=== PATIENT | female | born 2000 | race Caucasian/White ===

== ENCOUNTER 2019-02-02 10:47 | Emergency (ER) | payer OTHER ==
--- NOTE | 2019-02-02 10:50 | EDM.PDOC ---
ED HPI GENERAL MEDICAL PROBLEM - General Chief Complaint: General Stated Complaint: HIT HEAD Time Seen by Provider: 02/02/19 10:50 Source of Information: Reports: Patient - History of Present Illness INITIAL COMMENTS - FREE TEXT/NARRATIVE: HISTORY AND PHYSICAL: History of present illness: [Patient presents as she had fallen at [place] today She had slipped or lost her footing falling straight backwards it sounds as if should not the wind out of her herself as well as struck the back of her neck on the edge of the stair and low back she complains of 2-3 out of 10 pain no head injury or loss of consciousness reported by patient No fever nausea vomiting chills sweats no chest pain no current shortness breath headache dizziness or palpitation no bowel or urine symptoms ] Review of systems: As per history of present illness and below otherwise all systems reviewed and negative. Past medical history: As per history of present illness and as reviewed below otherwise noncontributory. Surgical history: As per history of present illness and as reviewed below otherwise noncontributory. Social history: No reported history of drug or alcohol abuse. Family history: As per history of present illness and as reviewed below otherwise noncontributory. Physical exam: HEENT: Atraumatic, normocephalic, pupils reactive, negative for conjunctival pallor or scleral icterus, mucous membranes moist, throat clear, neck supple, nontender, trachea midline. Lungs: Clear to auscultation, breath sounds equal bilaterally, chest nontender. Heart: S1S2, regular, negative for clicks, rubs, or JVD. Abdomen: Soft, nondistended, nontender. Negative for masses or hepatosplenomegaly. Negative for costovertebral tenderness. Pelvis: Stable nontender. Genitourinary: Deferred. Rectal: Deferred. Extremities: Atraumatic, negative for cords or calf pain. Neurovascular unremarkable. Neuro: Awake, alert, oriented. Cranial nerves II through XII unremarkable. Cerebellum unremarkable. Motor and sensory unremarkable throughout. Exam nonfocal. Skin within normal limits no bruising Diagnostics: [Cervical spine plain films Lumbar spine plain films Chest 1 view ] hCG Therapeutics: [ rest ice ibuprofen ] Impression: [ fall/contusion Low back pain ] Neck pain Definitive disposition and diagnosis as appropriate pending reevaluation and review of above. Back Pain Score (Numeric/FACES): 8 - Related Data Allergies Allergy/AdvReac Type Severity Reaction Status Date / Time No Known Allergies Allergy Verified 02/02/19 10:55 Home Meds: Home Meds Levonorgestrel [Kyleena] 1 unit VAG ONETIME 02/02/19 [History] ED ROS GENERAL - Review of Systems Review Of Systems: See Below ED EXAM, GENERAL - Physical Exam Exam: See Below Course - Vital Signs Last Recorded V/S: Last Vital Signs Temp 97.8 F 02/02/19 10:58 Pulse 62 02/02/19 10:58 Resp 15 02/02/19 10:58 BP 130/89 02/02/19 10:58 Pulse Ox 100 02/02/19 10:58 - Orders/Labs/Meds Labs: Laboratory Tests 02/02/19 Range/Units 11:03 Urine HCG, Qual NEGATIVE (NEGATIVE) Departure - Departure Time of Disposition: 12:59 Disposition: Home, Self-Care 01 Condition: Good Clinical Impression: Encounter for medical screening examination, Low back pain, Neck pain, Contusion - Discharge Information Referrals: PCP,None [Primary Care Provider] - Forms: ED Department Discharge Additional Instructions: Ice 20 minute intervals 3 times daily Ibuprofen 400 mg 3 times daily 7-10 days Follow-up with primary care 2 weeks sooner as needed [facility] - Primary Care [address] [place] [address] The following information is given to patients seen in the emergency department who are being discharged to home. This information is to outline your options for follow-up care. We provide all patients seen in our emergency department with a follow-up referral. The need for follow-up, as well as the timing and circumstances, are variable depending upon the specifics of your emergency department visit. If you don't have a primary care physician on staff, we will provide you with a referral. We always advise you to contact your personal physician following an emergency department visit to inform them of the circumstance of the visit and for follow-up with them and/or the need for any referrals to a consulting specialist. The emergency department will also refer you to a specialist when appropriate. This referral assures that you have the opportunity for follow-up care with a specialist. All of these measure are taken in an effort to provide you with optimal care, which includes your follow-up. Under all circumstances we always encourage you to contact your private physician who remains a resource for coordinating your care. When calling for follow-up care, please make the office aware that this follow-up is from your recent emergency room visit. If for any reason you are refused follow-up, please contact the [facility] emergency department at and asked to speak to the emergency department charge nurse.
--- NOTE | 2019-02-02 12:51 | CR ---
INDICATION: Pain after fall. TECHNIQUE: Cervical spine 3 view. COMPARISON: None FINDINGS: Bones: Alignment is normal. No fractures or significant bone lesions. Joints: Disc spaces and facets are unremarkable. Soft tissues: Unremarkable. IMPRESSION: Unremarkable cervical spine. Dictated by Jeff Lopez MD @ Feb 02 2019 12:49PM Signed by Dr. Jeff Lopez @ Feb 02 2019 12:49PM
--- NOTE | 2019-02-02 12:51 | CR ---
INDICATION: fall Single AP view Findings: The lungs are clear. Pulmonary vascularity, mediastinum and cardiac silhouette are within normal limits. No effusions and no pneumothorax. Osseous structures appear unremarkable. Impression: No evidence of acute cardiopulmonary disease. Dictated by: Jeff Lopez MD @ 02/02/2019 12:50:06 (Electronically Signed)
--- NOTE | 2019-02-02 12:53 | CR ---
INDICATION: Pain after fall. TECHNIQUE: Lumbar spine 3 view. COMPARISON: None FINDINGS: Bones: Alignment is normal. No fractures or significant bone lesions. Joints: Disc spaces and facets are unremarkable. Soft tissues: IUD. Moderately large volume of formed stool. IMPRESSION: Unremarkable lumbar spine. Dictated by Jeff Lopez MD @ Feb 02 2019 12:50PM Signed by Dr. Jeff Lopez @ Feb 02 2019 12:50PM
== END 2019-02-02 13:07 | disposition home or self-care (01) ==
LOC: MW.ED 10:47
DX: S30.0XXA Contusion of lower back and pelvis, initial encounter (principal); S10.93XA Contusion of unspecified part of neck, initial encounter; W22.8XXA Striking against or struck by other objects, initial encounter
CPT/HCPCS: 71045; 71045-26; 72040; 72040-26; 72100; 72100-26; 81025; 99283-25

== ENCOUNTER 2021-06-17 21:45 | Inpatient (IN) | payer BC ==
--- NOTE | 2021-06-17 22:19 | PCM.LDHP ---
L&D History of Present Illness - General Date of Service: 06/17/21 Admit Problem/Dx: Admission Diagnosis/Problem Admission Diagnosis/Problem Source of Information: Patient History Limitations: Reports: No Limitations - History of Present Illness Introduction:: 20 year old female at 39w0d presents with spontaneous rupture of membranes which occurred at 2034 with clear fluid. Mild irregular cramping since ROM. Reports good movement. Denies vaginal bleeding. Patient had a routine OB appointment with Dr. Valenzuela at [facility] today and cervical exam was 260/-3, vertex at that time. has been complicated by anxiety, patient taking Wellbutrin. - Related Data Allergies/Adverse Reactions: Allergies Allergy/AdvReac Type Severity Reaction Status Date / Time No Known Allergies Allergy Verified 02/02/19 10:55 Home Medications: Home Meds levonorgestreL [Kyleena] 1 unit VAG ONETIME 02/02/19 [History] Past Medical History - Past Health History Medical/Surgical History: Denies Medical/Surgical History Social & Family History - Family History Family Medical History: No Pertinent Family History - Caffeine Use Caffeine Use: Reports: Coffee, Energy Drinks, Soda, Tea H&P Review of Systems - Review of Systems: Review Of Systems: See Below General: Reports: No Symptoms HEENT: Reports: No Symptoms Pulmonary: Reports: No Symptoms Cardiovascular: Reports: No Symptoms Gastrointestinal: Reports: Abdominal Pain Genitourinary: Reports: No Symptoms Musculoskeletal: Reports: Back Pain Skin: Reports: No Symptoms Psychiatric: Reports: No Symptoms Neurological: Reports: No Symptoms Hematologic/Lymphatic: Reports: No Symptoms Immunologic: Reports: No Symptoms L&D Exam - Exam Exam: See Below - OB Specific Contraction Frequency (min): Irritability Contraction Intensity: Irritability Movement: Active Heart Tones: Present Heart Tones per Min: 130 Heart Rate (FHR) Variability: Moderate (6-25 bpm) Presentation: Vertex Estimated Weight: 3500 grams Problem List Initiated/Reviewed/Updated: Yes Assessment/Plan Comment:: 20 year old G1 at 39w0d with spontaneous rupture of membranes * Admit to labor and delivery * Recheck cervix in 1 hour, if no change may initiate Pitocin to augment labor * May receive epidural PRN pain management * Rh positive, GBS negative * Rubella NON-immune, candidate for MMR
[2021-06-17] MEDS ORDERED: Terbutaline 1 MG/ML SDV SUBCUT PRN (22:33)
[2021-06-17] MEDS ORDERED: Misoprostol 25 MCG (1/4 of 100 MCG) Tab VAG PRN (22:33)
[2021-06-17] MEDS ORDERED: Oxytocin/0.9 % Sodium Chloride 30 UNIT/500 ML BAG IV SCH ×2 (22:45→23:15)
[2021-06-17] MEDS: Lactated Ringers 1,000 ML IV SCH (22:55)
[2021-06-17] MEDS ORDERED: Sodium Chloride 0.9% 10 ML Syringe FLUSH PRN (23:07)
[2021-06-17] MEDS ORDERED: Sodium Chloride 0.9% 2.5 ML Syringe FLUSH PRN (23:07)
[2021-06-17] MEDS ORDERED: Methylergonovine 0.2 MG/1 ML Amp IM PRN (23:07)
[2021-06-17] MEDS ORDERED: Nalbuphine 10 MG/1 ML Vial IVPUSH PRN (23:07)
[2021-06-17] MEDS ORDERED: Water For Irrigation,Sterile 1,000 ML Container IRR PRN (23:07)
[2021-06-17] MEDS ORDERED: Lidocaine 1% 50 ML MDV INJECT PRN (23:07)
[2021-06-17] MEDS ORDERED: Tranexamic Acid 1,000 MG in Sodium Chloride 0.9% 100 ML IV PRN (23:07)
[2021-06-17] MEDS ORDERED: Misoprostol 200 MCG Tab PO PRN (23:07)
[2021-06-17] MEDS ORDERED: Sodium Chloride 0.9% 10 ML SDV IV PRN (23:07)
[2021-06-17] MEDS ORDERED: Carboprost Tromethamine 250 MCG/1 ML Amp IM PRN (23:07)
[2021-06-18] MEDS ORDERED: Promethazine 25 MG/ML SDV ONE (04:20)
[2021-06-18] MEDS: Butorphanol 1 MG/ML SDV IVPUSH PRN ×2 (04:28→05:39)
[2021-06-18] MEDS: Promethazine 25 MG/ML SDV IM PRN ×2 (04:30→21:48)
[2021-06-18] MEDS: Lactated Ringers 1,000 ML IV SCH ×2 (05:01→08:35)
[2021-06-18] MEDS ORDERED: fentaNYL 100 MCG/2 ML SDV ONE (08:01)
[2021-06-18] MEDS ORDERED: Ropivacaine HCl/PF 200 ML ONE (08:01)
[2021-06-18] MEDS ORDERED: Lidocaine 2% with EPINEPHrine 1:200,000 20 ML SDV ONE (08:02)
--- NOTE | 2021-06-18 08:27 | PCM.PREANE ---
Preanesthetic Assessment - Anesthesia/Transfusion/Family Hx Anesthesia History: Prior Anesthesia Without Reaction Family History of Anesthesia Reaction: No Transfusion History: No Prior Transfusion(s) - Physical Assessment NPO Status Date: 06/18/21 NPO Status Time: 00:05 Height: 1.68 m Weight: 82.1 kg ASA Class: 2 - Lab Values: Laboratory Last Values WBC 10.96 K/uL (4.0-11.0) 06/17/21 22:54 RBC 3.60 M/uL (4.30-5.90) L 06/17/21 22:54 Hgb 11.7 g/dL (12.0-16.0) L 06/17/21 22:54 Hct 33.3 % (36.0-46.0) L 06/17/21 22:54 MCV 92.5 fL (80.0-98.0) 06/17/21 22:54 MCH 32.5 pg (27.0-32.0) H 06/17/21 22:54 MCHC 35.1 g/dL (31.0-37.0) 06/17/21 22:54 RDW Std Deviation 43.5 fl (28.0-62.0) 06/17/21 22:54 RDW Coeff of Alvin 13 % (11.0-15.0) 06/17/21 22:54 Plt Count 144 K/uL (150-400) L 06/17/21 22:54 MPV 11.60 fL (7.40-12.00) 06/17/21 22:54 Nucleated RBC % 0.0 /100WBC 06/17/21 22:54 Nucleated RBCs # 0 K/uL 06/17/21 22:54 SARS-CoV-2 RNA (SCAR) NEGATIVE (NEGATIVE) 06/17/21 22:09 Blood Type A POSITIVE 06/17/21 22:54 Antibody Screen NEGATIVE 06/17/21 22:54 - Allergies Allergies/Adverse Reactions: Allergies Allergy/AdvReac Type Severity Reaction Status Date / Time No Known Allergies Allergy Verified 06/17/21 23:04 - Acknowledgements Anesthesia Type Planned: Epidural Pt an Appropriate Candidate for the Planned Anesthesia: Yes Alternatives and Risks of Anesthesia Discussed w Pt/Guardian: Yes Pt/Guardian Understands and Agrees with Anesthesia Plan: Yes PreAnesthesia Questionnaire - Past Health History Medical/Surgical History: Denies Medical/Surgical History F[employer] History: Reports: Psychiatric History: Reports: Anxiety, Other (See Below) Other Psychiatric History: social anxiety - Past Surgical History HEENT Surgical History: Reports: Eye Surgery, Oral Surgery, Tonsillectomy, Other (See Below) Other HEENT Surgeries/Procedures: wisdom teeth removal GI Surgical History: Reports: Other (See Below) Other GI Surgeries/Procedures: umbilical hernia - SUBSTANCE USE Tobacco Use Status *Q: Former Tobacco User Tobacco Use Within Last Twelve Months: No Second Hand Smoke Exposure: No Recreational Drug Use History: Yes Recreational Drug Type: Reports: Marijuana/Hashish - HOME MEDS Home Medications: Home Meds Docusate Sodium [Colace] 1 cap PO DAILY 06/17/21 [History] Pnv No.95/Ferrous Fum/Folic AC [ Vitamin Tablet] 1 tab PO DAILY 06/17/21 [History] - CURRENT (IN HOUSE) MEDS Current Meds: Current Medications Butorphanol Tartrate (Butorphanol 1 Mg/Ml Sdv) 1 mg IVPUSH Q1H PRN PRN Reason: Pain (severe 7-10) Last Admin: 06/18/21 05:39 Dose: 1 mg Documented by: Carboprost Tromethamine (Carboprost Tromethamine 250 Mcg/1 Ml Amp) 250 mcg IM ASDIRECTED PRN PRN Reason: Post Hemorrhage Oxytocin/Sodium Chloride (Oxytocin 30 Unit In Ns 0.9% 500 Ml Premix) 30 unit in 500 mls @ 2 mls/hr IV TITRATE AKI; Protocol Last Titration: 06/18/21 04:58 Dose: 4 munits/min, 4 mls/hr Documented by: Lactated Ringer's (Ringers, Lactated) 1,000 mls @ 150 mls/hr IV ASDIRECTED AKI Last Admin: 06/18/21 05:01 Dose: 25 mls/hr Documented by: Oxytocin/Sodium Chloride (Oxytocin 30 Unit In Ns 0.9% 500 Ml Premix) 30 unit in 500 mls @ 500 mls/hr IV TITRATE AKI Tranexamic Acid 1,000 mg/ (Sodium Chloride) 110 mls @ 660 mls/hr IV ONETIME PRN PRN Reason: Bleeding Lidocaine HCl (Lidocaine 1% 50 Ml Mdv) 50 ml INJECT ONETIME PRN PRN Reason: Laceration repair Methylergonovine Maleate (Methylergonovine 0.2 Mg/1 Ml Amp) 0.2 mg IM ASDIRECTED PRN PRN Reason: Post Hemorrhage Misoprostol (Misoprostol 25 Mcg (1/4 Of 100 Mcg) Tab) 25 mcg VAG ONETIME PRN PRN Reason: Cervical Ripening Misoprostol (Misoprostol 200 Mcg Tab) 200 mcg PO ONETIME PRN PRN Reason: Post Hemorrhage Nalbuphine HCl (Nalbuphine 10 Mg/1 Ml Vial) 10 mg IVPUSH Q1H PRN PRN Reason: Pain (severe 7-10) Promethazine HCl (Promethazine 25 Mg/Ml Sdv) 25 mg IM Q4H PRN PRN Reason: Nausea Last Admin: 06/18/21 04:30 Dose: 25 mg Documented by: Sodium Chloride (Sodium Chloride 0.9% 10 Ml Syringe) 10 ml FLUSH ASDIRECTED PRN PRN Reason: Keep Vein Open Sodium Chloride (Sodium Chloride 0.9% 2.5 Ml Syringe) 2.5 ml FLUSH ASDIRECTED PRN PRN Reason: Keep Vein Open Sodium Chloride (Sodium Chloride 0.9% 10 Ml Sdv) 10 ml IV ASDIRECTED PRN PRN Reason: IV Use Sterile Water (Water For Irrigation,Sterile 1,000 Ml Container) 1,000 ml IRR ASDIRECTED PRN PRN Reason: delivery Terbutaline Sulfate (Terbutaline 1 Mg/Ml Sdv) 0.25 mg SUBCUT ASDIRECTED PRN PRN Reason: Tacysystole Discontinued Medications Fentanyl (Fentanyl 100 Mcg/2 Ml Sdv) Confirm Administered Dose 200 mcg .ROUTE .STK-MED ONE Stop: 06/18/21 08:02 Ropivacaine (Naropin 0.2%) Confirm Administered Dose 200 mls @ as directed .ROUTE .STK-MED ONE Stop: 06/18/21 08:02 Lidocaine/Epinephrine (Lidocaine 2% With Epinephrine 1:200,000 20 Ml Sdv) Confirm Administered Dose 20 ml .ROUTE .STK-MED ONE Stop: 06/18/21 08:03 Promethazine HCl (Promethazine 25 Mg/Ml Sdv) Confirm Administered Dose 25 mg .ROUTE .STK-MED ONE Stop: 06/18/21 04:21
--- NOTE | 2021-06-18 08:31 | PCM.PRNOTE ---
- Free Text/Narrative Note: Anes Note Patient requests epidural for L&D. Siting position. Sterile technique. Chloraprep scrub to lumbar area. Sterile fenestrated drape applied. Epidural space easily achieved single attempt at level 2-3, midline approach using VANI technique. Cath threaded 5 cm with ease. Cath secure at 10 cm at skin using sterile clear adhesive dressing. )812 Test 3 cc 1.5% lido with epi negative. 0815 load 10cc 0.2% ropivicaine with 1 mcg cc fentanyl in slow divided doses. 0820 Pumps started with 90 cc same solution. Rate is 8 cc hr with 6 cc q 20 min prn bolus. Gurdeep well. Time with patient [id number] Roderick Chapman IMAGING SYSTEM ADMINISTRATOR
[2021-06-18] MEDS ORDERED: Witch Hazel Medicated Pads 40/Jar TOP PRN (21:34)
[2021-06-18] MEDS ORDERED: Benzocaine/Menthol 20%-0.5% Spray 78 GM Cannister TOP PRN (21:34)
[2021-06-18] MEDS ORDERED: Bisacodyl 10 MG Supp RECTAL PRN (21:34)
[2021-06-18] MEDS ORDERED: Docusate Sodium 100 MG Cap PO PRN (21:34)
[2021-06-18] MEDS ORDERED: Acetaminophen 500 MG Tab PO PRN ×2 (21:34)
[2021-06-18] MEDS ORDERED: Ibuprofen 400 MG Tab PO PRN (21:34)
[2021-06-18] MEDS ORDERED: Lanolin 100% Cream 7 GM Tube TOP PRN (21:34)
--- NOTE | 2021-06-18 21:45 | PCM.OPNOTE ---
- General Post-Op/Procedure Note Date of Surgery/Procedure: 06/18/21 Operative Procedure(s): Vaccuum assisted vaginal delivery with 1st vaginal laceration repaired Findings: Viable female APGARs 8, 9 weight 7 lb 3 oz. Spontaneous delivery intact placenta with 3V cord Pre Op Diagnosis: 39/2 week IUP. Premature, prolonged rupture of membranes. Maternal exhaustion Post-Op Diagnosis: 39/2 week IUP. PPROM. Maternal exhaustion. Uterine atony Anesthesia Technique: Epidural Primary Surgeon: Roselia Huerta EBL in mLs: 500 Complications: none known Condition: Stable Free Text/Narrative:: Intake & Output [id number] 06/18/21 06/18/21 06/18/21 06:59 14:59 22:59 Intake Total 1000 700 Balance 1000 700
[2021-06-18] MEDS: Ibuprofen 800 MG Tab PO PRN ×2 (22:12→23:50)
[2021-06-18] MEDS: oxyCODONE 5 MG Tab PO PRN ×2 (22:13→23:51)
[2021-06-18] MEDS ORDERED: Ketorolac 30 MG/ML SDV IVPUSH ONE (22:16)
[2021-06-18] MEDS ORDERED: Ketorolac 30 MG/ML SDV ONE (22:18)
--- NOTE | 2021-06-19 01:59 | OR ---
SURGEON: Roselia Huerta M.D. DATE OF PROCEDURE: 06/18/2021 PREOPERATIVE DIAGNOSES: 1. A 39 and 2 weeks intrauterine . 2. Premature prolonged rupture of membranes. 3. Maternal exhaustion. POSTOPERATIVE DIAGNOSES: 1. A 39 and 2 weeks intrauterine . 2. Premature prolonged rupture of membranes. 3. Maternal exhaustion. 4. Uterine atony. PROCEDURE: Vacuum-assisted vaginal delivery with first-degree vaginal laceration repaired. ANESTHESIA: Epidural. ESTIMATED BLOOD LOSS: 500 mL. COMPLICATIONS: None known. FINDINGS: Viable female. scores 8 at one minute and 9 at five minutes. Weight of 7 pounds 3 ounces. Spontaneous delivery, intact placenta, 3-vessel cord. DISPOSITION: Infant to Nursery, mom in LDRP, stable. PROCEDURE DETAILS: Callie is a 20-year-old, G1, P0, at 39 and 2 weeks' gestation who presented on the evening of 06/17/2021 with rupture of membranes at approximately 2030. She had clear fluid. Group B strep negative. She was admitted, observed, with no evidence of active labor, was initiated on Pitocin augmentation. She was monitored throughout the day on 06/18/2021. I assumed care at 5 p.m. At that time, she was complete, but was very uncomfortable and had to have epidural rebolused. Thereafter, more readily began pushing efforts. She had already pushed for approximately 30 minutes before that. The patient resumed pushing efforts, and she was able to push to a +3 station, but thereafter for the next hour had no further progression, becoming increasingly fatigued. At this juncture, she had pushed for a total of approximately 3 hours. Upon my arrival, the patient was placed in modified dorsal lithotomy position, was prepped and draped in the usual aseptic manner. Assessed position was felt to be LAURA. weight seemed to be 3400 g. She is comfortable with her epidural. She is pushing readily and is at approximately a +3 station. Options discussed with her to continue pushing and heart tones remained in the 130s to 140s with variability versus proceeding with an operative vaginal delivery. She is requesting operative vaginal delivery and agrees to vacuum-assisted vaginal delivery. Risks of vacuum include a vaginal laceration, cephalic hematoma for the infant, and intracranial bleeding. They voiced their understanding and agreed to proceed. The bladder has been drained. Sagittal sutures able to palpated. The Mityvac was gently placed on the scalp. After being properly positioned with the next contraction was able to insufflate to the green zone and assisted the patient with her pushing efforts for this contraction. Released between contractions for the next 2 contractions. In similar fashion, assisted with her pushing efforts, and was able to deliver the head to a +5 station, released vacuum. The patient continued pushing efforts. Anterior shoulder was delivered followed by a posterior shoulder, remainder of the body without difficulty. The infant's oropharynx and nares were bulb suctioned. was handed off her mother with nursery staff at the side. After a delay, the cord was clamped x2 and cut. Cord blood gases were obtained. Light pressure was applied while the placenta was delivered spontaneously intact. Vigorous fundal and uterine massage was then applied while 30 units of Pitocin was delivered in 500 mL of IV fluid. Upon inspection of cervix, vaginal sidewall, and perineum, there was found to be a first-degree midline vaginal laceration that was repaired using 3-0 Vicryl in the usual fashion as well as a right periurethral laceration repaired with [id number] suture. Hemostasis initially seemed evident, but then the uterus became more boggy. Performed fundal and uterine massage, and the uterus would firm but somewhat boggy with continued blood loss and some clots. Therefore, at this point, the patient underwent dosing of methargen 0.2 mg IM and 1 g of TXA. Thereafter, the uterus became much more firm. Hemostasis is evident. Vital signs remained stable. The patient has tolerated the procedure well overall. We will continue to monitor bleeding closely. She will remain in LDRP, infant to Nursery. Sponge, instrument, and needle count correct. [id number] / MODL /[id number]
[2021-06-19] MEDS ORDERED: Ketorolac 30 MG/ML SDV ONE (02:06)
--- NOTE | 2021-06-19 07:58 | PCM.PNPP ---
- General Info Date of Service: 06/19/21 Subjective Update: Patient doing well this morning. Minimal bleeding/pain. Tolerating oral intake. Struggling with so far, baby does not want to wake up to latch. Functional Status: Reports: Pain Controlled, Tolerating Diet, Ambulating, Urin ating - Review of Systems General: Reports: No Symptoms HEENT: Reports: No Symptoms Pulmonary: Reports: No Symptoms Cardiovascular: Reports: No Symptoms Gastrointestinal: Reports: No Symptoms Genitourinary: Reports: No Symptoms Musculoskeletal: Reports: No Symptoms Skin: Reports: No Symptoms Neurological: Reports: No Symptoms Psychiatric: Reports: No Symptoms - Patient Data Vital Signs - Most Recent: Last Vital Signs Temp 36.2 C 06/19/21 03:44 Pulse 88 06/19/21 03:44 Resp 18 06/19/21 03:44 BP 124/86 06/19/21 03:44 Pulse Ox 96 06/19/21 03:44 Weight - Most Recent: 82.1 kg I&O - Last 24 Hours: Intake & Output 06/18/21 06/19/21 06/19/21 22:59 06:59 14:59 Intake Total 1300 Balance 1300 Lab Results - Last 24 Hours: Laboratory Results - last 24 hr 06/18/21 06/19/21 Range/Units 20:55 05:28 WBC 18.23 H (4.0-11.0) K/uL RBC 3.09 L (4.30-5.90) M/uL Hgb 10.1 L (12.0-16.0) g/dL Hct 28.8 L (36.0-46.0) % MCV 93.2 (80.0-98.0) fL MCH 32.7 H (27.0-32.0) pg MCHC 35.1 (31.0-37.0) g/dL RDW Std Deviation 44.5 (28.0-62.0) fl RDW Coeff of Alvin 13 (11.0-15.0) % Plt Count 144 L (150-400) K/uL MPV 11.70 (7.40-12.00) fL Nucleated RBC % 0.0 /100WBC Nucleated RBCs # 0 K/uL Cord ABG pH 7.294 (7.18-7.38) Cord ABG Base Excess -5 (-10--2) Cord VBG pH 7.362 (7.25-7.45) Cord VBG Base Excess -5 (-10--2) Med Orders - Current: Current Medications Acetaminophen (Acetaminophen 500 Mg Tab) 500 mg PO Q4H PRN PRN Reason: Pain (mild 1-3) Acetaminophen (Acetaminophen 500 Mg Tab) 1,000 mg PO Q4H PRN PRN Reason: Pain (mild 1-3) Benzocaine/Menthol (Benzocaine/Menthol 20%-0.5% [place] 78 Gm Cannister) 0 gm TOP ASDIRECTED PRN PRN Reason: Perineal Comfort Measure Last Admin: 06/18/21 22:11 Dose: 1 canister Documented by: Bisacodyl (Bisacodyl 10 Mg Supp) 10 mg RECTAL ONETIME PRN PRN Reason: Constipation Docusate Sodium (Docusate Sodium 100 Mg Cap) 100 mg PO Q12H PRN PRN Reason: Constipation Emollient Ointment (Lanolin 100% Cream 7 Gm Tube) 0 gm TOP ASDIRECTED PRN PRN Reason: Sore Nipples Oxytocin/Sodium Chloride (Oxytocin 30 Unit In Ns 0.9% 500 Ml Premix) 30 unit in 500 mls @ 2 mls/hr IV TITRATE AKI; Protocol Last Titration: 06/18/21 20:56 Dose: 500 munits/min, 500 mls/hr Documented by: Lactated Ringer's (Ringers, Lactated) 1,000 mls @ 150 mls/hr IV ASDIRECTED AKI Last Admin: 06/18/21 08:35 Dose: 150 mls/hr Documented by: Tranexamic Acid 1,000 mg/ (Sodium Chloride) 110 mls @ 660 mls/hr IV ONETIME PRN PRN Reason: Bleeding Last Admin: 06/18/21 21:17 Dose: 660 mls/hr Documented by: Ibuprofen (Ibuprofen 400 Mg Tab) 400 mg PO Q4H PRN PRN Reason: Pain (mild 1-3) Ibuprofen (Ibuprofen 800 Mg Tab) 800 mg PO Q6H PRN PRN Reason: Cramping Last Admin: 06/18/21 23:50 Dose: 800 mg Documented by: Methylergonovine Maleate (Methylergonovine 0.2 Mg/1 Ml Amp) 0.2 mg IM ASDIRECTED PRN PRN Reason: Post Hemorrhage Last Admin: 06/18/21 21:16 Dose: 0.2 mg Documented by: Nalbuphine HCl (Nalbuphine 10 Mg/1 Ml Vial) 10 mg IVPUSH Q1H PRN PRN Reason: Pain (severe 7-10) Oxycodone HCl (Oxycodone 5 Mg Tab) 5 mg PO Q2H PRN PRN Reason: Pain (severe 7-10) Last Admin: 06/18/21 23:51 Dose: 5 mg Documented by: Promethazine HCl (Promethazine 25 Mg/Ml Sdv) 25 mg IM Q4H PRN PRN Reason: Nausea Last Admin: 06/18/21 21:48 Dose: 25 mg Documented by: Sodium Chloride (Sodium Chloride 0.9% 10 Ml Syringe) 10 ml FLUSH ASDIRECTED PRN PRN Reason: Keep Vein Open Sodium Chloride (Sodium Chloride 0.9% 2.5 Ml Syringe) 2.5 ml FLUSH ASDIRECTED PRN PRN Reason: Keep Vein Open Sterile Water (Water For Irrigation,Sterile 1,000 Ml Container) 1,000 ml IRR ASDIRECTED PRN PRN Reason: delivery Last Admin: 06/18/21 20:50 Dose: 1,000 ml Documented by: Clarke Arreola (Clarke Arreola Medicated Pads 40/Jar) 1 pad TOP ASDIRECTED PRN PRN Reason: comfort care Last Admin: 06/18/21 22:12 Dose: 1 tub Documented by: Discontinued Medications Butorphanol Tartrate (Butorphanol 1 Mg/Ml Sdv) 1 mg IVPUSH Q1H PRN PRN Reason: Pain (severe 7-10) Last Admin: 06/18/21 05:39 Dose: 1 mg Documented by: Carboprost Tromethamine (Carboprost Tromethamine 250 Mcg/1 Ml Amp) 250 mcg IM ASDIRECTED PRN PRN Reason: Post Hemorrhage Fentanyl (Fentanyl 100 Mcg/2 Ml Sdv) Confirm Administered Dose 200 mcg .ROUTE .STK-MED ONE Stop: 06/18/21 08:02 Oxytocin/Sodium Chloride (Oxytocin 30 Unit In Ns 0.9% 500 Ml Premix) 30 unit in 500 mls @ 500 mls/hr IV TITRATE AKI Ropivacaine (Naropin 0.2%) Confirm Administered Dose 200 mls @ as directed .ROUTE .STK-MED ONE Stop: 06/18/21 08:02 Ketorolac Tromethamine (Ketorolac 30 Mg/Ml Sdv) 30 mg IVPUSH ONETIME ONE Stop: 06/18/21 22:17 Last Admin: 06/18/21 22:22 Dose: 30 mg Documented by: Ketorolac Tromethamine (Ketorolac 30 Mg/Ml Sdv) Confirm Administered Dose 30 mg .ROUTE .STK-MED ONE Stop: 06/18/21 22:19 Ketorolac Tromethamine (Ketorolac 30 Mg/Ml Sdv) Confirm Administered Dose 30 mg .ROUTE .STK-MED ONE Stop: 06/19/21 02:07 Lidocaine HCl (Lidocaine 1% 50 Ml Mdv) 50 ml INJECT ONETIME PRN PRN Reason: Laceration repair Lidocaine/Epinephrine (Lidocaine 2% With Epinephrine 1:200,000 20 Ml Sdv) Confirm Administered Dose 20 ml .ROUTE .STK-MED ONE Stop: 06/18/21 08:03 Misoprostol (Misoprostol 25 Mcg (1/4 Of 100 Mcg) Tab) 25 mcg VAG ONETIME PRN PRN Reason: Cervical Ripening Misoprostol (Misoprostol 200 Mcg Tab) 200 mcg PO ONETIME PRN PRN Reason: Post Hemorrhage Promethazine HCl (Promethazine 25 Mg/Ml Sdv) Confirm Administered Dose 25 mg .ROUTE .STK-MED ONE Stop: 06/18/21 04:21 Sodium Chloride (Sodium Chloride 0.9% 10 Ml Sdv) 10 ml IV ASDIRECTED PRN PRN Reason: IV Use Terbutaline Sulfate (Terbutaline 1 Mg/Ml Sdv) 0.25 mg SUBCUT ASDIRECTED PRN PRN Reason: Tacysystole - Infant Interaction Disposition, : in Room with Family Infant Interaction: Holding Feeding: Attempted ; Nursed Fair/Poor Support Person: - Recovery Exam Fundal Tone: Firm Fundal Level: 1 Fingerbreadths Below Umbilicus Fundal Placement: Midline Lochia Amount: Small Lochia Color: Rubra/Red Bladder Status: Voiding Urinary Elimination: Voided - Exam General: Alert, Oriented Neck: Supple Lungs: Normal Respiratory Effort GI/Abdominal Exam: Soft, Non-Tender, No Distention Extremities: Non-Tender Skin: Warm, Dry, Intact Neurological: No New Focal Deficit Psy/Mental Status: Alert, Normal Affect, Normal Mood - Problem List & Annotations (1) Vacuum-assisted vaginal delivery SNOMED Code(s): 57295285737778549 Code(s): Z37.9 - OUTCOME OF DELIVERY, UNSPECIFIED Status: Acute Current Visit: Yes - Problem List Review Problem List Initiated/Reviewed/Updated: Yes - Assessment Assessment:: 20o s/p VAVD for maternal exhaustion, PPD#1, after induction of labor for premature rupture of membranes. - Plan Plan:: Continue routine care. Encouraged working with nursing staff on latch and . Rh positive, Rubella immune, GBS negative. Plan to discharge home tomorrow.
[2021-06-19] MEDS: Ibuprofen 800 MG Tab PO PRN ×3 (08:47→22:24)
[2021-06-20] MEDS: Ibuprofen 800 MG Tab PO PRN (08:56)
--- NOTE | 2021-06-20 10:05 | PCM.PNPP ---
- General Info Date of Service: 06/20/21 Functional Status: Reports: Pain Controlled, Tolerating Diet, Ambulating, Urinating - Review of Systems General: Reports: No Symptoms HEENT: Reports: No Symptoms Pulmonary: Reports: No Symptoms Cardiovascular: Reports: No Symptoms Gastrointestinal: Reports: No Symptoms Genitourinary: Reports: No Symptoms Musculoskeletal: Reports: No Symptoms Skin: Reports: No Symptoms Neurological: Reports: No Symptoms Psychiatric: Reports: No Symptoms - General Info Date of Service: 06/20/21 - Patient Data Vital Signs - Most Recent: Last Vital Signs Temp 36.8 C 06/20/21 07:45 Pulse 83 06/20/21 07:45 Resp 18 06/20/21 07:45 BP 126/71 06/20/21 07:45 Pulse Ox 99 06/20/21 07:45 Weight - Most Recent: 82.1 kg Lab Results - Last 24 Hours: Laboratory Results - last 24 hr 06/17/21 Range/Units 22:54 RPR Non-Reac (Non-Reac) Med Orders - Current: Current Medications Acetaminophen (Acetaminophen 500 Mg Tab) 500 mg PO Q4H PRN PRN Reason: Pain (mild 1-3) Acetaminophen (Acetaminophen 500 Mg Tab) 1,000 mg PO Q4H PRN PRN Reason: Pain (mild 1-3) Benzocaine/Menthol (Benzocaine/Menthol 20%-0.5% [place] 78 Gm Cannister) 0 gm TOP ASDIRECTED PRN PRN Reason: Perineal Comfort Measure Last Admin: 06/18/21 22:11 Dose: 1 canister Documented by: Bisacodyl (Bisacodyl 10 Mg Supp) 10 mg RECTAL ONETIME PRN PRN Reason: Constipation Docusate Sodium (Docusate Sodium 100 Mg Cap) 100 mg PO Q12H PRN PRN Reason: Constipation Emollient Ointment (Lanolin 100% Cream 7 Gm Tube) 0 gm TOP ASDIRECTED PRN PRN Reason: Sore Nipples Oxytocin/Sodium Chloride (Oxytocin 30 Unit In Ns 0.9% 500 Ml Premix) 30 unit in 500 mls @ 2 mls/hr IV TITRATE AKI; Protocol Last Titration: 06/18/21 20:56 Dose: 500 munits/min, 500 mls/hr Documented by: Lactated Ringer's (Ringers, Lactated) 1,000 mls @ 150 mls/hr IV ASDIRECTED AKI Last Admin: 06/18/21 08:35 Dose: 150 mls/hr Documented by: Tranexamic Acid 1,000 mg/ (Sodium Chloride) 110 mls @ 660 mls/hr IV ONETIME PRN PRN Reason: Bleeding Last Admin: 06/18/21 21:17 Dose: 660 mls/hr Documented by: Ibuprofen (Ibuprofen 400 Mg Tab) 400 mg PO Q4H PRN PRN Reason: Pain (mild 1-3) Ibuprofen (Ibuprofen 800 Mg Tab) 800 mg PO Q6H PRN PRN Reason: Cramping Last Admin: 06/20/21 08:56 Dose: 800 mg Documented by: Methylergonovine Maleate (Methylergonovine 0.2 Mg/1 Ml Amp) 0.2 mg IM ASDIRECTED PRN PRN Reason: Post Hemorrhage Last Admin: 06/18/21 21:16 Dose: 0.2 mg Documented by: Nalbuphine HCl (Nalbuphine 10 Mg/1 Ml Vial) 10 mg IVPUSH Q1H PRN PRN Reason: Pain (severe 7-10) Oxycodone HCl (Oxycodone 5 Mg Tab) 5 mg PO Q2H PRN PRN Reason: Pain (severe 7-10) Last Admin: 06/18/21 23:51 Dose: 5 mg Documented by: Promethazine HCl (Promethazine 25 Mg/Ml Sdv) 25 mg IM Q4H PRN PRN Reason: Nausea Last Admin: 06/18/21 21:48 Dose: 25 mg Documented by: Sodium Chloride (Sodium Chloride 0.9% 10 Ml Syringe) 10 ml FLUSH ASDIRECTED PRN PRN Reason: Keep Vein Open Sodium Chloride (Sodium Chloride 0.9% 2.5 Ml Syringe) 2.5 ml FLUSH ASDIRECTED PRN PRN Reason: Keep Vein Open Sterile Water (Water For Irrigation,Sterile 1,000 Ml Container) 1,000 ml IRR ASDIRECTED PRN PRN Reason: delivery Last Admin: 06/18/21 20:50 Dose: 1,000 ml Documented by: Clarke Arreola (Clarke Arreola Medicated Pads 40/Jar) 1 pad TOP ASDIRECTED PRN PRN Reason: comfort care Last Admin: 06/18/21 22:12 Dose: 1 tub Documented by: Discontinued Medications Butorphanol Tartrate (Butorphanol 1 Mg/Ml Sdv) 1 mg IVPUSH Q1H PRN PRN Reason: Pain (severe 7-10) Last Admin: 06/18/21 05:39 Dose: 1 mg Documented by: Carboprost Tromethamine (Carboprost Tromethamine 250 Mcg/1 Ml Amp) 250 mcg IM ASDIRECTED PRN PRN Reason: Post Hemorrhage Fentanyl (Fentanyl 100 Mcg/2 Ml Sdv) Confirm Administered Dose 200 mcg .ROUTE .STK-MED ONE Stop: 06/18/21 08:02 Oxytocin/Sodium Chloride (Oxytocin 30 Unit In Ns 0.9% 500 Ml Premix) 30 unit in 500 mls @ 500 mls/hr IV TITRATE AKI Ropivacaine (Naropin 0.2%) Confirm Administered Dose 200 mls @ as directed .ROUTE .STK-MED ONE Stop: 06/18/21 08:02 Ketorolac Tromethamine (Ketorolac 30 Mg/Ml Sdv) 30 mg IVPUSH ONETIME ONE Stop: 06/18/21 22:17 Last Admin: 06/18/21 22:22 Dose: 30 mg Documented by: Ketorolac Tromethamine (Ketorolac 30 Mg/Ml Sdv) Confirm Administered Dose 30 mg .ROUTE .STK-MED ONE Stop: 06/18/21 22:19 Ketorolac Tromethamine (Ketorolac 30 Mg/Ml Sdv) Confirm Administered Dose 30 mg .ROUTE .STK-MED ONE Stop: 06/19/21 02:07 Last Admin: 06/20/21 09:14 Dose: Not Given Documented by: Lidocaine HCl (Lidocaine 1% 50 Ml Mdv) 50 ml INJECT ONETIME PRN PRN Reason: Laceration repair Lidocaine/Epinephrine (Lidocaine 2% With Epinephrine 1:200,000 20 Ml Sdv) Confirm Administered Dose 20 ml .ROUTE .STK-MED ONE Stop: 06/18/21 08:03 Misoprostol (Misoprostol 25 Mcg (1/4 Of 100 Mcg) Tab) 25 mcg VAG ONETIME PRN PRN Reason: Cervical Ripening Misoprostol (Misoprostol 200 Mcg Tab) 200 mcg PO ONETIME PRN PRN Reason: Post Hemorrhage Promethazine HCl (Promethazine 25 Mg/Ml Sdv) Confirm Administered Dose 25 mg .ROUTE .STK-MED ONE Stop: 06/18/21 04:21 Sodium Chloride (Sodium Chloride 0.9% 10 Ml Sdv) 10 ml IV ASDIRECTED PRN PRN Reason: IV Use Terbutaline Sulfate (Terbutaline 1 Mg/Ml Sdv) 0.25 mg SUBCUT ASDIRECTED PRN PRN Reason: Tacysystole - Interaction Infant Disposition, : [place] in Room with Family Interaction: Holding Infant Infant Feeding: Attempted ; Nursed Fair/Poor Support Person: - Recovery Exam Fundal Tone: Firm Fundal Level: 2 Fingerbreadths Below Umbilicus Fundal Placement: Midline Lochia Amount: Scant Lochia Color: Rubra/Red Perineum Description: Other (see below) Other Perinuem Description: 1 degree laceration Episiotomy/Laceration: Approximated Bladder Status: Voiding Urinary Elimination: Voided - Exam Neck: Supple Lungs: Normal Respiratory Effort GI/Abdominal Exam: Soft, Non-Tender, No Distention Extremities: Normal Range of Motion, Non-Tender. No: No Pedal Edema (1+ equal) Skin: Warm, Dry, Intact Neurological: No New Focal Deficit - Problem List Review Problem List Initiated/Reviewed/Updated: Yes - Assessment Assessment:: 20o s/p VAVD for maternal exhaustion, PPD#2, after induction of labor for premature rupture of membranes. - Plan Plan:: Discharge instructions reviewed. Dismiss to home.
== END 2021-06-20 19:15 | disposition home or self-care (01) | DRG 560 ==
LOC: MW.OBCHECK 21:45 → MW.OB 21:45 → MW.OBCHECK 23:07 → MW.OB 23:07 → OBSVTOIN 06-18 20:55 → MW.OB 06-19 02:39
PROVIDERS: ADMIT Obstetrics & Gynecology; ATTEND Obstetrics & Gynecology
PROC: 10D07Z6 Extraction of Products of Conception, Vacuum, Via Natural or Artificial Opening (ICD-10-PCS; principal; 2021-06-18)
PROC: 0HQ9XZZ Repair Perineum Skin, External Approach (ICD-10-PCS; 2021-06-18)
PROC: 3E0R3BZ Introduction of Anesthetic Agent into Spinal Canal, Percutaneous Approach (ICD-10-PCS; 2021-06-18)
PROC: 00HU33Z Insertion of Infusion Device into Spinal Canal, Percutaneous Approach (ICD-10-PCS; 2021-06-18)
DX: O42.02 Full-term premature rupture of membranes, onset of labor within 24 hours of rupture (principal); O75.81 Maternal exhaustion complicating labor and delivery; Z37.0 Single live birth; O99.344 Other mental disorders complicating childbirth; F41.9 Anxiety disorder, unspecified; O70.0 First degree perineal laceration during delivery; O62.2 Other uterine inertia; Z20.822 Contact with and (suspected) exposure to COVID-19; Z3A.39 39 weeks gestation of pregnancy; Z87.891 Personal history of nicotine dependence
CPT/HCPCS: 36415; 51702; 59025; 59409; 82803; 85027; 86592; 86850; 86900; 86901; A9270-GY; J0595; J1885; J2210; J2550; J2590; J2795; J3010; J7120; U0002

== ENCOUNTER 2023-12-10 20:44 | Emergency (ER) | payer BC ==
[2023-12-10] MEDS: Tetracaine HCl/PF 0.5% 4 ML Bottle EYERT ONE (21:37)
[2023-12-10] MEDS: Erythromycin Base 0.5% Ophth Oint 1 GM Tube EYERT ONE (21:37)
== END 2023-12-10 21:40 | disposition home or self-care (01) ==
LOC: MW.ED 20:44
DX: T15.01XA Foreign body in cornea, right eye, initial encounter (principal); W44.9XXA Unspecified foreign body entering into or through a natural orifice, initial encounter
CPT/HCPCS: 65222; 99283; A9270; J3490

== ENCOUNTER 2024-02-26 19:09 | Emergency (ER) | payer BC ==
[2024-02-26 19:50] LABS: BASOPHILS ABSOLUTE AUTO 0.02 K/uL (0.00-0.20); BASOPHILS PERCENT AUTO 0.2 % (0.0-1.0); EOSINOPHILS ABSOLUTE AUTO 0.05 K/uL (0.00-0.45); EOSINOPHILS PERCENT AUTO 0.6 % (0.0-6.0); HEMATOCRIT 35.9 % (37.0-47.0); HEMOGLOBIN 12.7 g/dL (12.0-16.0); IMMATURE GRAN ABSOLUTE AUTO 0.02 K/uL (0.00-0.05); IMMATURE GRAN PERCENT AUTO 0.2 % (0.0-0.4); LYMPHOCYTES ABSOLUTE AUTO 2.84 K/uL (1.00-4.80); LYMPHOCYTES PERCENT AUTO 32.6 % (24.0-44.0); MEAN CORPUSCULAR HEMOGLOBIN 32.2 pg (28.0-32.0); MEAN CORPUSCULAR HGB CONC 35.4 g/dL (32.0-36.0); MEAN CORPUSCULAR VOLUME 91.1 fL (83.0-99.0); MEAN PLATELET VOLUME 9.7 fL (9.4-12.3); MONOCYTES ABSOLUTE AUTO 0.65 K/uL (0.00-0.80); MONOCYTES PERCENT AUTO 7.5 % (0.0-8.0); NEUTROPHILS ABSOLUTE AUTO 5.14 K/uL (1.80-7.70); NEUTROPHILS PERCENT AUTO 58.9 % (41.0-71.0); PLATELET COUNT,PLT 232 K/uL (150-400); RED BLOOD CELL COUNT 3.94 M/uL (4.10-5.30); WHITE BLOOD CELL COUNT,WBC 8.72 K/uL (3.9-11.3)
[2024-02-26 20:45] LABS: A/G RATIO 1.2 (0.9-1.6); ALBUMIN 3.9 g/dL (3.4-5.0); BILIRUBIN TOTAL 0.3 mg/dL (0.2-1.0); CALCIUM 9.1 mg/dL (8.5-10.1); CARBON DIOXIDE,CO2 22.6 mmol/L (21.0-32.0); CREATININE 0.6 mg/dL (0.6-1.0); EST CRCL DRUG DOSING (CG) 135.35 mL/min; POTASSIUM,K 3.5 mmol/L (3.5-5.1); PROTEIN TOTAL,TP 7.1 g/dL (6.4-8.2)
== END 2024-02-26 20:52 | disposition home or self-care (01) ==
LOC: MW.ED 19:09
DX: O20.9 Hemorrhage in early pregnancy, unspecified (principal); Z75.8 Other problems related to medical facilities and other health care; Z3A.01 Less than 8 weeks gestation of pregnancy
CPT/HCPCS: 36415; 76801; 76801-26; 80053; 84702; 85025; 86900; 86901; 99282; 99284

== ENCOUNTER 2024-07-28 13:52 | Emergency (ER) | payer OTHER, BC | END 2024-07-28 14:10 | disposition home or self-care (01) | LOC: MW.ED 13:52 | DX: O26.892 Other specified pregnancy related conditions, second trimester (principal); R10.9 Unspecified abdominal pain; Z90.89 Acquired absence of other organs; Z79.899 Other long term (current) drug therapy; Z3A.27 27 weeks gestation of pregnancy; V89.2XXA Person injured in unspecified motor-vehicle accident, traffic, initial encounter | CPT/HCPCS: 99283 ==

== ENCOUNTER 2024-10-23 19:52 | Inpatient (IN) | payer BC ==
[2024-10-23] MEDS ORDERED: ePHEDrine 50 MG/ML SDV IVPUSH PRN (21:21)
[2024-10-23] MEDS ORDERED: Phenylephrine HCl In 0.9% NaCl 1 MG/10 ML Syringe IVPUSH PRN (21:21)
[2024-10-23] MEDS ORDERED: dexmedeTOMIDine HCl 200 MCG/2 ML SDV EPIDUR SCH (21:30)
[2024-10-23] MEDS ORDERED: Methylergonovine 0.2 MG/1 ML Amp IM PRN (22:00)
[2024-10-23] MEDS ORDERED: Carboprost Tromethamine 250 MCG/1 mL Vial IM PRN (22:00)
[2024-10-23] MEDS ORDERED: Tranexamic Acid in NACL,ISO-OS 1,000 MG in Premix Bag 1 BAG IV PRN (22:00)
[2024-10-23] MEDS ORDERED: Lidocaine 1% 50 ML MDV INJECT PRN (22:00)
[2024-10-23] MEDS ORDERED: Sodium Chloride 0.9% 10 ML Syringe FLUSH PRN (22:00)
[2024-10-23] MEDS ORDERED: Misoprostol 200 MCG Tab PO PRN (22:00)
[2024-10-23] MEDS ORDERED: Butorphanol 2 MG/ML SDV IVPUSH PRN (22:00)
[2024-10-23] MEDS ORDERED: Sodium Chloride 0.9% 20 ML SDV IV PRN (22:00)
[2024-10-23] MEDS ORDERED: Water For Irrigation,Sterile 1,000 ML Container IRR PRN (22:00)
[2024-10-23] MEDS ORDERED: Lactated Ringers 1,000 ML IV SCH (22:00)
[2024-10-23] MEDS ORDERED: Sodium Chloride 0.9% 2.5 ML Syringe FLUSH PRN (22:00)
[2024-10-23 23:26] LABS: HEMATOCRIT 34.3 % (37.0-47.0); MEAN CORPUSCULAR HEMOGLOBIN 31.5 pg (28.0-32.0); MEAN PLATELET VOLUME 11.2 fL (9.4-12.3); PLATELET COUNT,PLT 153 K/uL (150-400); RED BLOOD CELL COUNT 3.81 M/uL (4.10-5.30); WHITE BLOOD CELL COUNT,WBC 12.98 K/uL (3.9-11.3)
[2024-10-24] MEDS: Ropivacaine HCl/PF 400 MG in Premix Bag 1 BAG EPIDUR SCH (03:20)
[2024-10-24] MEDS: Oxytocin/0.9 % Sodium Chloride 30 UNIT/500 ML BAG IV SCH (07:02)
[2024-10-24] MEDS ORDERED: Methylergonovine 0.2 MG/1 ML Amp IM PRN (07:21)
[2024-10-24] MEDS ORDERED: Misoprostol 200 MCG Tab RECTAL PRN (07:21)
[2024-10-24] MEDS ORDERED: Lanolin 100% Cream 7 GM Tube TOP PRN (07:21)
[2024-10-24 07:42] LABS: PH,UMBILICAL ARTERIAL 7.106 (7.18-7.38); PH,UMBILICAL VENOUS 7.218 (7.25-7.45)
[2024-10-24] MEDS: Acetaminophen 500 MG Tab PO PRN (09:01)
[2024-10-24] MEDS: Ibuprofen 800 MG Tab PO PRN (15:42)
[2024-10-24] MEDS: Docusate Sodium 100 MG Cap PO PRN (20:25)
[2024-10-25 06:11] LABS: HEMATOCRIT 30.6 % (37.0-47.0); HEMOGLOBIN 10.2 g/dL (12.0-16.0)
[2024-10-25] MEDS: Benzocaine/Menthol 20%-0.5% Spray 78 GM Cannister TOP PRN (17:34)
[2024-10-25] MEDS: Witch Hazel Medicated Pads 40/Jar TOP PRN (17:34)
== END 2024-10-25 21:50 | disposition still patient (30) | DRG 560 ==
LOC: MW.OB 19:52 → MW.OBCHECK 19:52 → MW.OB 22:00 → MW.OBCHECK 22:00 → OBSVTOIN 10-24 07:01 → MW.OB 10-24 09:50
PROVIDERS: ADMIT Obstetrics & Gynecology; ATTEND Obstetrics & Gynecology
PROC: 10E0XZZ Delivery of Products of Conception, External Approach (ICD-10-PCS; principal; 2024-10-24)
PROC: 3E0R3BZ Introduction of Anesthetic Agent into Spinal Canal, Percutaneous Approach (ICD-10-PCS; 2024-10-24)
PROC: 00HU33Z Insertion of Infusion Device into Spinal Canal, Percutaneous Approach (ICD-10-PCS; 2024-10-24)
PROC: 3E033VJ Introduction of Other Hormone into Peripheral Vein, Percutaneous Approach (ICD-10-PCS; 2024-10-24)
DX: O80 Encounter for full-term uncomplicated delivery (principal); Z37.0 Single live birth; Z3A.39 39 weeks gestation of pregnancy
CPT/HCPCS: 36415; 59025; 82803; 85014; 85018; 85027; 86592; 86850; 86900; 86901; A9270-GY; J2590; J2795